=== PATIENT | female | born 1940 | race Caucasian/White ===

== ENCOUNTER → 2016-07-21 | Outpatient (CLI) | payer MEDICARE, MEDICAID ==
[~2016-07-21] MED LIST: /NITR4TASL SL; ALBUTEROL INH; ALLO300T OR; ALLO300T2 PO; AMLO5TAB OR; BYSTOLIC PO; CIPR500T4 OR; DIAZ5TAB OR; DILAUDID PO; FISH1000 OR; FOSI40TA OR; HYDR12.56 PO; HYDR25TA6 OR; INDA1.252 PO; INDAPAMIDE PO; LAC HYDRIN TOP; MAG DELAY PO; MAG-TAB OR; METHYLPREDNISOLONE TOP; NYST10006 EX; NYSTATIN OINT TOP; NYSTATIN OR; NYSTCRE3 EX; OMEGA 3 PO; OMEP20TA7 OR; PAPATAB3 OR; PRED5EL OR; PREV15CA OR; PROP80CA OR; RANI150C OR; TRIAMCINOLONE OINT TOP; VALIUM PO; [UNRECOGNIZED DRUG - CODE] EX; methylphenidate OR; triamcinolone aceton TOP
--- NOTE | 2016-07-21 13:45 | REP ---
Clinical: Pain. Technique: Internal rotation, external rotation, and Y view of the left shoulder. Comparison: 01/31/2009. Findings: Age-related osteopenia and arthritic degenerative changes are appreciated. There is near complete obliteration of the subacromial space which has progressed since prior examination. Cortical irregularity to the humeral head and blunted appearance to the glenoid rim are also identified and consistent with degenerative change. No acute fracture or dislocation. Impression: Age-related osteopenia and arthritic degenerative changes progressive since 2008. No acute fracture dislocation.
--- NOTE | 2016-07-21 13:46 | REP ---
Clinical: Left hand pain. Technique: AP, lateral views of the left hand. Findings: Advanced osteopenia and osteoarthritic degenerative changes are appreciated. No acute fracture dislocation. No obvious swelling. No subcutaneous emphysema or radiodense foreign body. Impression: Advanced osteopenia and osteoarthritic degenerative changes. No obvious acute fracture or dislocation.
--- NOTE | 2016-07-21 13:48 | REP ---
Clinical: Pain with recent trauma/fall. Technique: AP and lateral views of the thoracic spine. Findings: Age-related osteopenia and degenerative changes include endplate sclerosis with marginal osteophytes and disc space narrowing. Alignment and kyphosis maintained. No acute fracture / compression injury or subluxation. Impression: Age-related osteopenia and degenerative changes. No acute fracture / compression injury or subluxation.
--- NOTE | 2016-07-21 13:49 | REP ---
Clinical: Pain with recent trauma/fall. Technique: AP, lateral, and coned-down views of the lumbosacral spine. Findings: Age-related osteopenia and advanced osteoarthritic degenerative changes are appreciated. Findings include marginal osteophytes, endplate sclerosis and disc space narrowing along with hypertrophic facet changes. Alignment is maintained. There is no acute fracture / compression injury or subluxation. Impression: Age-related osteopenia and advanced multilevel degenerative changes. No acute fracture / compression injury or subluxation.
== END ==
LOC: M CLY 11:09
PROVIDERS: ATTEND Family Medicine
DX: M51.34 Other intervertebral disc degeneration, thoracic region (principal); M51.37 Other intervertebral disc degeneration, lumbosacral region; M85.88 Other specified disorders of bone density and structure, other site; M19.012 Primary osteoarthritis, left shoulder; M85.812 Other specified disorders of bone density and structure, left shoulder; M19.042 Primary osteoarthritis, left hand; M85.842 Other specified disorders of bone density and structure, left hand

== ENCOUNTER → 2016-08-26 | Outpatient (REF) | payer MEDICARE, MEDICAID ==
[2016-08-27 11:49] LABS: ADD MANUAL DIFFER YES; MEAN CORPUSCULAR HEMOGLOBIN 32.6 pg (27.0-33.0); MEAN CORPUSCULAR HGB CONC 34.9 g/dl (32.0-36.5); MEAN CORPUSCULAR VOLUME 93.4 fl (80.0-96.0); PLATELET COUNT, AUTOMATED 232 k/mm3 (150-450); RED CELL DISTRIBUTION WIDTH 12.5 % (11.5-14.5); WHITE BLOOD COUNT 9.5 K/mm3 (4.0-10.0)
[2016-08-27 12:19] LABS: BASOPHILS 4 % (0-4); EOSINOPHILS 9 % (0-5)
[2016-08-27 12:23] LABS: ANISOCYTOSIS 1+
[2016-08-27 12:42] LABS: ALBUMIN 3.6 GM/DL (3.2-5.2); ALBUMIN/GLOBULIN RATIO 0.88 (1.00-1.93); BILIRUBIN,TOTAL 0.4 MG/DL (0.2-1.0); CALCIUM LEVEL 8.3 MG/DL (8.8-10.2); CREATININE FOR GFR 1.05 MG/DL (0.55-1.02); GLOMERULAR FILTRATION RATE 54.5 (>39); TOTAL PROTEIN 7.7 GM/DL (6.4-8.2)
== END ==
LOC: M SFHCCLAY 15:59
PROVIDERS: ATTEND Family Medicine
DX: R41.3 Other amnesia (principal); R63.4 Abnormal weight loss; I10 Essential (primary) hypertension; R63.0 Anorexia; M15.0 Primary generalized (osteo)arthritis; F41.8 Other specified anxiety disorders
CPT/HCPCS: 36415; 80053; 84443; 85025; G0463